=== PATIENT | male | born 1980 | race Caucasian/White ===

== ENCOUNTER 2022-05-11 02:05 | Emergency (ER) | payer OTHER ==
[~2022-05-11] VITALS: Ht 182.9 cm; Wt 86.2 kg
== END 2022-05-11 06:35 | disposition home or self-care (01) ==
LOC: ED 02:05 → EDBD 02:07 → ED 02:07
DX: F10.129 Alcohol abuse with intoxication, unspecified (principal); Y90.8 Blood alcohol level of 240 mg/100 ml or more
CPT/HCPCS: 36415; 80048; 82010; 82803; 85025; 96374; 99284-25; G0480; J2405; J7030

== ENCOUNTER 2024-03-02 13:41 | Emergency (ER) | payer OTHER, BC ==
[~2024-03-02] VITALS: Ht 182.9 cm; Wt 88.8 kg
[2024-03-02] MEDS ORDERED: HUMALOG100 UNIT/1 SUB-Q (17:29)
[2024-03-02] MEDS ORDERED: IBUPROFEN 600 MG TAB PO ONE (18:30)
[2024-03-02] MEDS ORDERED: HYDROCODONE/ACETA 7.5/325 TAB PO ONE (18:30)
[2024-03-02] MEDS ORDERED: HYDROCODON-ACE1 EA11 PO (19:28)
[2024-03-02 19:43] VITALS: BP 140/67
== END 2024-03-02 19:45 | disposition home or self-care (01) ==
LOC: ED 13:41
DX: M54.50 Low back pain, unspecified (principal); E10.9 Type 1 diabetes mellitus without complications; Z79.4 Long term (current) use of insulin; X50.0XXA Overexertion from strenuous movement or load, initial encounter
CPT/HCPCS: 72100; 99283; A9270